=== PATIENT | male | born 1945 | race Caucasian/White ===

== ENCOUNTER 2018-11-19 09:47 | Day surgery (SDC) | payer MEDICARE ==
[~2018-11-19 09:47] MED LIST: Midazolam 1 MG/ML 2 ML SDV ONE; Propofol 200 MG/20 ML SDV ONE; fentaNYL 100 MCG/2 ML SDV ONE
[2018-11-19] MEDS ORDERED: Dextrose 5%-Lactated Ringers 1,000 ML IV SCH (10:15)
[2018-11-19 12:42] VITALS: BP 149/78; PULSE 50
--- NOTE | 2018-11-29 21:59 | OR ---
DATE OF PROCEDURE: 11/19/2018 PREOPERATIVE DIAGNOSIS: History of colonic polyps. POSTOPERATIVE DIAGNOSES: 1. Left colonic diverticulosis. 2. No recurrent colonic polyps. OPERATIVE PROCEDURE: Flexible colonoscopy. ANESTHESIA: IV sedation. INDICATION FOR PROCEDURE: This is a 73-year-old presenting with history of colon polyps with colonoscopy having been done in 2016. He also has a brother who recently of colon carcinoma. Given this, he is to undergo followup colonoscopy. Potential risks including bleeding and perforation were discussed, and the patient wishes to proceed. DETAILS OF PROCEDURE: The patient was taken to the operating room, placed in a left lateral decubitus position. IV sedation was administered, after which, the initial digital rectal exam was performed and unremarkable. Colonoscope was then passed to the level of rectum with retroflexion revealing uncomplicated hemorrhoidal columns. The scope was then eventually passed to the cecum. The prep was fairly good with there only being a small amount of liquid stool present to that level. There was uncomplicated left colonic diverticulosis, but otherwise there were no areas of colitis, and no polyps or other signs of neoplasia. Scope was then withdrawn. The above findings were reconfirmed, and the procedure was then concluded. Given the personal family history of colonic neoplasia, the patient is to undergo repeat colonoscopy in 5 years. Juan Luis Oconnor MD /[id number]
== END 2018-11-19 12:59 | disposition home or self-care (01) ==
LOC: JP.SDS 09:47
PROVIDERS: ATTEND Surgery
DX: Z12.11 Encounter for screening for malignant neoplasm of colon (principal); K57.30 Diverticulosis of large intestine without perforation or abscess without bleeding; K64.9 Unspecified hemorrhoids; E78.5 Hyperlipidemia, unspecified; Z86.010 Personal history of colon polyps; Z80.0 Family history of malignant neoplasm of digestive organs; Z79.82 Long term (current) use of aspirin
CPT/HCPCS: G0105; J2250; J2704; J3010; J7042

== ENCOUNTER 2022-02-09 08:01 | Day surgery (SDC) | payer MEDICARE ==
[~2022-02-09 08:01] MED LIST changes: -Midazolam 1 MG/ML 2 ML SDV ONE
[2022-02-09] MEDS ORDERED: Sodium Chloride 0.9% 1,000 ML IV SCH (08:45)
[2022-02-09 11:04] VITALS: BP 161/80; PULSE 44
== END 2022-02-09 11:22 | disposition home or self-care (01) ==
LOC: JP.SDS 08:01
PROVIDERS: ATTEND Surgery
DX: Z12.11 Encounter for screening for malignant neoplasm of colon (principal); D12.3 Benign neoplasm of transverse colon; K57.30 Diverticulosis of large intestine without perforation or abscess without bleeding; Z80.0 Family history of malignant neoplasm of digestive organs; Z79.899 Other long term (current) drug therapy
CPT/HCPCS: 45380; 88305; J2704; J3010; J7030

== ENCOUNTER 2024-10-23 06:59 | Day surgery (SDC) | payer MEDICARE ==
[2024-10-23] MEDS ORDERED: Propofol 200 MG/20 ML SDV ONE (07:04)
[2024-10-23] MEDS ORDERED: fentaNYL 50 MCG/ML SDV ONE (07:04)
[2024-10-23] MEDS: Lactated Ringers 1,000 ML IV SCH (07:56)
[2024-10-23 10:10] VITALS: BP 159/88; PULSE 46
== END 2024-10-23 10:13 | disposition home or self-care (01) ==
LOC: JP.SDS 06:59
PROVIDERS: ATTEND Surgery
DX: Z12.11 Encounter for screening for malignant neoplasm of colon (principal); D12.0 Benign neoplasm of cecum; D12.8 Benign neoplasm of rectum; K57.30 Diverticulosis of large intestine without perforation or abscess without bleeding; Z80.0 Family history of malignant neoplasm of digestive organs
CPT/HCPCS: 00811-QZ; 88305; J2704; J3010; J7120